=== PATIENT | male | born 1980 | race Caucasian/White ===

== ENCOUNTER 2023-04-15 17:20 | Inpatient (IN) | payer OTHER ==
[~2023-04-15] VITALS: Ht 188 cm; Wt 163.7 kg
[2023-04-15 17:25] VITALS: BP 125/87; PULSE 71; RESP 22; TEMP 97.4; O2SAT 95
[2023-04-15] MEDS ORDERED: DILTIAZEM 25 MG/5 ML VIAL IVP ONE (18:05)
[2023-04-15 18:19] LABS: BASOPHILS # (AUTO) 0.1 K/uL (0.00-0.22); BASOPHILS % (AUTO) 0.8 % (0.0-2.0); EOSINOPHILS # (AUTO) 0.3 K/uL (0-0.4); EOSINOPHILS % (AUTO) 2.5 % (0.0-4.0); HEMATOCRIT 48.2 % (36-52); HEMOGLOBIN 15.9 g/dL (12.0-18.0); LYMPHOCYTES # (AUTO) 2.2 K/uL (2.0-11.5); LYMPHOCYTES % (AUTO) 19.3 % (20.5-51.1); MEAN CORPUSCULAR HEMOGLOBIN 29 pg (27-31); MEAN CORPUSCULAR HGB CONC 33 g/dL (33-37); MEAN CORPUSCULAR VOLUME 86.8 fL (80-94); MONOCYTES # (AUTO) 0.8 K/uL (0.8-1.0); NEUTROPHILS # (AUTO) 8.2 K/uL (1.8-7.7); NEUTROPHILS % (AUTO) 70.4 % (42.2-75.2); PLATELET COUNT (AUTO) 261 K/uL (140-450); RED BLOOD CELL COUNT(AUTO) 5.55 MIL/uL (4.20-6.10); RED CELL DISTRIBUTION WIDTH 15.1 % (11.6-13.7); WHITE BLOOD COUNT (AUTO) 11.6 K/uL (4.8-10.8)
[2023-04-15 18:35] LABS: INR 1.11 (0.8-1.2); PARTIAL THROMBOPLASTIN TIME 29.2 secs (22-35.6); PROTHROMBIN TIME 11.5 secs (10.8-13.4)
[2023-04-15 18:44] LABS: D-DIMER < 100 ng/ml (0-400)
[2023-04-15 18:51] LABS: FREE T4 (FREE THYROXINE) 0.83 ng/dL (0.76-1.46); THYROID STIMULATING HORMONE 2.54 uIU/mL (0.34-3.74)
[2023-04-15 18:52] LABS: ALBUMIN 3.8 g/dL (3.4-5.0); ANION GAP 15.6 (8-16); CALCIUM 8.3 mg/dL (8.5-10.1); CARBON DIOXIDE 25.2 mmol/L (21-32); CREATININE 0.9 mg/dL (0.6-1.3); POTASSIUM 3.8 mmol/L (3.5-5.1); TOTAL BILIRUBIN 0.3 mg/dL (0.0-1.0); TOTAL PROTEIN, SERUM 7.2 g/dL (6.4-8.2)
[2023-04-15] MEDS ORDERED: NACL 0.9% 500 ML IV ONE ×2 (19:40→20:40)
[2023-04-15] MEDS ORDERED: CALCIUM GLUC 1 GM/50 mL NS BAG 50 ML IV ONE (19:45)
[2023-04-15] MEDS ORDERED: MORPHINE SULFATE 4 MG/ML SYR IVP PRN (20:00)
[2023-04-15] MEDS ORDERED: POTASSIUM CHLORIDE 10 MEQ TABER PO PRN (20:00)
[2023-04-15] MEDS ORDERED: ONDANSETRON 4 MG/2 ML VIAL IVP PRN (20:00)
[2023-04-15] MEDS ORDERED: ACETAMINOPHEN 325 MG TAB PO PRN (20:00)
[2023-04-15] MEDS ORDERED: HYDROcodone/APAP 5/325 MG 1 TAB TAB PO PRN (20:00)
[2023-04-15] MEDS ORDERED: LORazepam 1 MG TAB PO PRN (20:00)
[2023-04-15] MEDS ORDERED: MAGNESIUM OXIDE 400 MG TAB PO PRN (20:00)
[2023-04-15] MEDS ORDERED: APIX2.5 PO (20:03)
[2023-04-15] MEDS ORDERED: ACETAMINOPHEN 325 MG TAB PO ONE (20:05)
[2023-04-15] MEDS ORDERED: METOPROLOL 25 MG TAB PO ONE (21:00)
[2023-04-15] MEDS ORDERED: LOSA100T2 PO (21:14)
[2023-04-15] MEDS ORDERED: CLON0.1T16 PO (21:14)
[2023-04-15] MEDS ORDERED: AMLO10TA PO (21:14)
[2023-04-15 21:40] VITALS: PULSE 62; RESP 16; O2SAT 95
[2023-04-15 22:00] VITALS: BP 105/65; PULSE 62; PULSE 79; RESP 16; TEMP 97.6; O2SAT 95
[2023-04-15] MEDS: NACL 0.9% 1,000 ML IV SCH (22:18)
[2023-04-15] MEDS ORDERED: METOPROLOL 25 MG TAB ONE (22:31)
[2023-04-15] MEDS: APIXABAN 2.5 MG TAB PO SCH (22:40)
[2023-04-16] VITALS: BP 111/67; PULSE 63; PULSE 67; RESP 18; TEMP 98.1; O2SAT 96
[2023-04-16 04:00] VITALS: BP 100/72; PULSE 60; PULSE 62; RESP 16; TEMP 98.5; O2SAT 93
[2023-04-16 06:38] LABS: BASOPHILS % (AUTO) 0.3 % (0.0-2.0); EOSINOPHILS # (AUTO) 0.2 K/uL (0-0.4); EOSINOPHILS % (AUTO) 2.7 % (0.0-4.0); HEMATOCRIT 47.3 % (36-52); HEMOGLOBIN 15.8 g/dL (12.0-18.0); LYMPHOCYTES # (AUTO) 2.2 K/uL (2.0-11.5); MEAN CORPUSCULAR HEMOGLOBIN 29 pg (27-31); MEAN CORPUSCULAR HGB CONC 33 g/dL (33-37); MEAN CORPUSCULAR VOLUME 87.1 fL (80-94); MONOCYTES # (AUTO) 0.6 K/uL (0.8-1.0); MONOCYTES % (AUTO) 7.7 % (1.7-9.3); NEUTROPHILS # (AUTO) 5.1 K/uL (1.8-7.7); NEUTROPHILS % (AUTO) 62.3 % (42.2-75.2); PLATELET COUNT (AUTO) 231 K/uL (140-450); RED BLOOD CELL COUNT(AUTO) 5.43 MIL/uL (4.20-6.10); RED CELL DISTRIBUTION WIDTH 14.7 % (11.6-13.7); WHITE BLOOD COUNT (AUTO) 8.2 K/uL (4.8-10.8)
[2023-04-16 07:05] LABS: ALBUMIN 3.4 g/dL (3.4-5.0); ANION GAP 12.2 (8-16); CALCIUM 8.1 mg/dL (8.5-10.1); CREATININE 0.8 mg/dL (0.6-1.3); MAGNESIUM 1.9 mg/dL (1.8-2.4); POTASSIUM 4.2 mmol/L (3.5-5.1); TOTAL BILIRUBIN 0.5 mg/dL (0.0-1.0); TOTAL PROTEIN, SERUM 6.5 g/dL (6.4-8.2)
[2023-04-16 08:00] VITALS: BP 85/54; PULSE 48; PULSE 66; RESP 20; TEMP 97.3; O2SAT 94
[2023-04-16] MEDS: APIXABAN 2.5 MG TAB PO SCH (08:07)
[2023-04-16] MEDS ORDERED: METOPROLOL 25 MG TAB PO SCH (09:00)
[2023-04-16] MEDS: NACL 0.9% 1,000 ML IV SCH (09:55)
[2023-04-16 12:00] VITALS: BP 128/74; PULSE 64; RESP 18; TEMP 96.8; O2SAT 94
[2023-04-16 16:00] VITALS: BP 103/53; PULSE 62; PULSE 64; RESP 20; TEMP 96.8; O2SAT 95
[2023-04-16] MEDS ORDERED: METO50TE2 PO (16:52)
[2023-04-16 17:15] VITALS: BP 103/53; PULSE 62; RESP 20; TEMP 98.2
[2023-04-17] MEDS ORDERED: METOPROLOL SUCCINATE 50 MG TABER PO SCH (09:00)
== END 2023-04-16 18:20 | disposition home or self-care (01) | DRG 201 ==
LOC: MED 17:20 → MMU 19:59 → OBSVTOIN 20:01 → MTU 20:01
PROVIDERS: ADMIT Student in an Organized Health Care Education/Training Program; ATTEND Student in an Organized Health Care Education/Training Program
DX: I48.20 Chronic atrial fibrillation, unspecified (principal); R65.10 Systemic inflammatory response syndrome (SIRS) of non-infectious origin without acute organ dysfunction; E66.01 Morbid (severe) obesity due to excess calories; E86.0 Dehydration; I10 Essential (primary) hypertension; J45.909 Unspecified asthma, uncomplicated; Z68.42 Body mass index [BMI] 45.0-49.9, adult; Z90.49 Acquired absence of other specified parts of digestive tract; Z87.891 Personal history of nicotine dependence
CPT/HCPCS: 36415; 71045; 80053; 83735; 83880; 84439; 84443; 84484; 85025; 85379; 85610; 85730; 87081; 93005; 96361; 96374; 99285; J0610; J3490

== ENCOUNTER 2023-11-15 06:56 | Emergency (ER) | payer OTHER ==
[~2023-11-15] VITALS: Ht 188 cm; Wt 163.7 kg
[~2023-11-15 06:56] MED LIST: APIX2.5 PO; CLON0.1T16 PO; METO50TE2 PO
[2023-11-15 07:01] VITALS: BP 146/87; PULSE 78; RESP 18; TEMP 97.8; O2SAT 97
[2023-11-15] MEDS: DEXAMETHASONE 10 MG/ML VIAL IM ONE (07:35)
[2023-11-15 07:39] VITALS: O2SAT 95
[2023-11-15 08:10] LABS: BASOPHILS # (AUTO) 0.1 K/uL (0.00-0.22); BASOPHILS % (AUTO) 0.5 % (0.0-2.0); EOSINOPHILS # (AUTO) 0.2 K/uL (0-0.4); EOSINOPHILS % (AUTO) 1.5 % (0.0-4.0); HEMATOCRIT 46.7 % (36-52); HEMOGLOBIN 15.8 g/dL (12.0-18.0); LYMPHOCYTES # (AUTO) 1.6 K/uL (2.0-11.5); LYMPHOCYTES % (AUTO) 11.8 % (20.5-51.1); MEAN CORPUSCULAR HEMOGLOBIN 29 pg (27-31); MEAN CORPUSCULAR HGB CONC 34 g/dL (33-37); MEAN CORPUSCULAR VOLUME 85.8 fL (80-94); MONOCYTES # (AUTO) 1.1 K/uL (0.8-1.0); MONOCYTES % (AUTO) 7.8 % (1.7-9.3); NEUTROPHILS # (AUTO) 10.9 K/uL (1.8-7.7); NEUTROPHILS % (AUTO) 78.4 % (42.2-75.2); PLATELET COUNT (AUTO) 257 K/uL (140-450); RED BLOOD CELL COUNT(AUTO) 5.44 MIL/uL (4.20-6.10); RED CELL DISTRIBUTION WIDTH 15.2 % (11.6-13.7)
[2023-11-15 08:38] VITALS: O2SAT 95
[2023-11-15] MEDS ORDERED: AMOX1TAB8 PO (08:52)
[2023-11-15 08:55] LABS: ANION GAP 10.3 (8-16); CALCIUM 8.8 mg/dL (8.5-10.1); CARBON DIOXIDE 29.5 mmol/L (21-32); CREATININE 0.8 mg/dL (0.6-1.3); POTASSIUM 3.8 mmol/L (3.5-5.1)
[2023-11-15 09:01] LABS: ALBUMIN 3.6 g/dL (3.4-5.0); BILIRUBIN,DIRECT 0.1 mg/dL (0.0-0.3); TOTAL BILIRUBIN 0.5 mg/dL (0.0-1.0); TOTAL PROTEIN, SERUM 7.8 g/dL (6.4-8.2)
== END 2023-11-15 09:34 | disposition home or self-care (01) ==
LOC: MED 06:56
DX: K11.20 Sialoadenitis, unspecified (principal); R22.0 Localized swelling, mass and lump, head; I10 Essential (primary) hypertension; Z79.899 Other long term (current) drug therapy; Z79.01 Long term (current) use of anticoagulants
CPT/HCPCS: 36415; 70490; 80048; 80076; 85025; 86308; 87081; 96372; 99285; J1100